=== PATIENT | male | born 1985 | race Caucasian/White ===

== ENCOUNTER 2023-07-07 19:32 | Emergency (ER) | payer OTHER ==
[~2023-07-07] VITALS: Ht 172.7 cm; Wt 120.3 kg
[~2023-07-07 19:32] MED LIST: AEROCHAMBER MA1 EACH MISC; PREDNISONE20 MG PO; SINGULAIR10 MG PO; VENTOLIN HFA18 GM INH
[2023-07-07 20:25] LABS: BASOPHILS 0.6 % (0-2); EOSINOPHILS 2.2 % (0-6); HEMATOCRIT 47.1 % (35.0-50.0); HEMOGLOBIN 15.5 g/dL (12.0-18.0); MCH 28.6 (27-36); MCV 86.6 fl (81-99); MONOCYTES 9.4 % (0-12); NEUTROPHILS 63.8 % (39-80); PLATELET COUNT 273 K/uL (140-440); RBC 5.43 M/ul (4.3-5.7); RDW 13.8 (10.5-15.0)
[2023-07-07] MEDS ORDERED: COLCHICINE0.6 M1 PO (21:06)
[2023-07-07 21:45] VITALS: BP 142/91
== END 2023-07-07 21:45 | disposition home or self-care (01) ==
LOC: ED 19:32
PROVIDERS: Family Medicine
DX: M10.9 Gout, unspecified (principal); J45.909 Unspecified asthma, uncomplicated; F32.A Depression, unspecified; Z88.5 Allergy status to narcotic agent
CPT/HCPCS: 36415; 73630; 84550; 85025; A9270

== ENCOUNTER 2023-10-29 21:50 | Inpatient (IN) | payer OTHER ==
[~2023-10-29] VITALS: Ht 172.7 cm; Wt 125.2 kg
[~2023-10-29 21:50] MED LIST changes: +COLCHICINE0.6 M1 PO
[2023-10-29 22:09] LABS: BASOPHILS 0.3 % (0-2); EOSINOPHILS 1.2 % (0-6); HEMATOCRIT 43.6 % (35.0-50.0); HEMOGLOBIN 14.2 g/dL (12.0-18.0); LYMPHOCYTES 10.3 % (24-44); MCH 28.4 (27-36); MCHC 32.6 g/dl (30-36); MCV 87.1 fl (81-99); MONOCYTES 8.9 % (0-12); NEUTROPHILS 79.3 % (39-80); PLATELET COUNT 267 K/uL (140-440); RDW 15.2 (10.5-15.0)
[2023-10-29] MEDS ORDERED: ondansetron HCL 4 MG/2 ML VIAL IV ONE (22:15)
[2023-10-29 22:28] LABS: ALBUMIN 3.9 g/dL (3.4-5.0); ALBUMIN/GLOBULIN RATIO 0.91 (1.1-2.4); ALKALINE PHOSPHATASE 273 U/L (46-116); ALT (SGPT) 645 U/L (14-59); ANION GAP 13.7 (7-21); AST (SGOT) 297 U/L (15-37); BILIRUBIN, TOTAL 3.8 ng/dL (0.2-1.0); CALCIUM 9.2 mg/dL (8.5-10.1); CARBON DIOXIDE 26 mmol/L (21-32); CHLORIDE 103 mmol/L (98-107); CREATININE, SERUM 0.96 mg/dL (0.70-1.30); GLOMERULAR FILTRATION RATE,EST 104 mL/min (>60); POTASSIUM 3.7 mmol/L (3.5-5.1); PROTEIN, TOTAL 8.2 g/dL (6.4-8.2); UREA NITROGEN 12 mg/dL (7-18)
[2023-10-29] MEDS ORDERED: KETOROLAC TROMETHAMINE 30 MG/ML VIAL IV ONE (22:30)
[2023-10-29] MEDS ORDERED: LACTATED RINGER'S 1,000 ML IV ONE ×2 (22:30→23:30)
[2023-10-29] MEDS ORDERED: HYDROmorphone HCL 1 MG/ML SYR IV PRN (23:15)
[2023-10-29] MEDS ORDERED: LACTATED RINGER'S 1,000 ML IV SCH (23:15)
[2023-10-29] MEDS ORDERED: ondansetron HCL 4 MG/2 ML VIAL IV PRN (23:15)
[2023-10-29] MEDS ORDERED: FAMOTIDINE 20 MG/ 2 ML VIAL IV SCH (23:17)
--- NOTE | 2023-10-29 23:41 | NUR ---
pt ARRIVED TO MS FLOOR FROM ED, pt A/OX4. SELF TRANSFERRED TO MS BED, ADMISSION COMPLETED. IV SITE WNL, BOLUS INFUSING DIRECTED. pt ORIENTED TO ROOM AND POC, QUESTIONS ANSWERED. PRIMARY RN IN ROOM COMPLETING pt CARES. CALL LIGHT IN REACH.
[2023-10-29 23:43] VITALS: BP 128/74
[2023-10-30] VITALS (7 sets, daily range): BP systolic 109–128; BP diastolic 55–71
--- NOTE | 2023-10-30 00:37 | NUR ---
ADMISSION ASSESSMENT COMPLETE. IV BOLUS INFUSING PER ORDER. PT REPORTS ABD PAIN TOLERABLE 3-4/10. DENIES NAUSEA. ABD SOFT. BOWEL TONES ACTIVE. PT NPO. ORAL CARE SUPPLIES PROVIDED. DISCUSSED POC. QUESTIONS ANSWERED. PT ORIENTED TO ROOM AND NURSE CALL LIGHT. NO FURTHER NEEDS AT THIS TIME.
[2023-10-30 01:18] LABS: BILIRUBIN, URINE NEGATIVE (negative); BLOOD/HGB, URINE NEGATIVE (Negative); KETONE, URINE NEGATIVE (Negative); LEUK ESTERASE, URINE NEGATIVE (negative); NITRITE, URINE NEGATIVE (negative); PH, URINE 5.5 (5-7)
[2023-10-30 01:34] LABS: AMPHETAMINES, URINE NEGATIVE (NEGATIVE); BARBITURATES, URINE NEGATIVE (NEGATIVE); BENZODIAZEPINE, URINE NEGATIVE (NEGATIVE); BUPRENORPHINE, URINE NEGATIVE (NEGATIVE); CANNABINOID, URINE NEGATIVE (NEGATIVE); COCAINE, URINE NEGATIVE (NEGATIVE); ECSTASY, URINE NEGATIVE (NEGATIVE); FENTANYL, URINE NEGATIVE (NEGATIVE); METHADONE, URINE NEGATIVE (NEGATIVE); OPIATES, URINE NEGATIVE (NEGATIVE); OXYCODONE, URINE NEGATIVE (NEGATIVE); PHENCYCLIDINE, URINE NEGATIVE (NEGATIVE)
--- NOTE | 2023-10-30 01:59 | NUR ---
IV PUMP ALARMING. NEW BAG IVF INFUSING PER ORDER. PT UP TO BR TO VOID 1000 ML CONCENTRATED URINE. UA SENT TO LAB. NO C/O PAIN OR NAUSEA AT THIS TIME. PT DENIES NEEDS.
--- NOTE | 2023-10-30 05:22 | NUR ---
PT REPORTS EPIGASTRIC PAIN 5/10 AND NAUSEA. PRN FOR PAIN AND N/V ADMIN PER EMAR. VS AND I&O OBTAINED. NO FURTHER NEEDS.
[2023-10-30 05:45] LABS: BASOPHILS 0.2 % (0-2); EOSINOPHILS 2.3 % (0-6); HEMATOCRIT 40.2 % (35.0-50.0); HEMOGLOBIN 12.9 g/dL (12.0-18.0); LYMPHOCYTES 19.7 % (24-44); MCH 28.2 (27-36); MCHC 32.1 g/dl (30-36); MCV 87.9 fl (81-99); MONOCYTES 11.2 % (0-12); NEUTROPHILS 66.6 % (39-80); PLATELET COUNT 225 K/uL (140-440); RBC 4.57 M/ul (4.3-5.7); RDW 14.9 (10.5-15.0)
[2023-10-30 05:59] LABS: ALBUMIN 3.2 g/dL (3.4-5.0); ALBUMIN/GLOBULIN RATIO 0.91 (1.1-2.4); ANION GAP 12.7 (7-21); BILIRUBIN, TOTAL 3.9 ng/dL (0.2-1.0); BUN/CREATININE RATIO 9.63 (6.0-28.6); CALCIUM 8.6 mg/dL (8.5-10.1); CREATININE, SERUM 0.83 mg/dL (0.70-1.30); POTASSIUM 3.7 mmol/L (3.5-5.1); PROTEIN, TOTAL 6.7 g/dL (6.4-8.2)
[2023-10-30] MEDS ORDERED: PROCHLORPERAZINE EDISYLATE 10 MG/2 ML VIAL IV PRN (06:45)
[2023-10-30] MEDS ORDERED: DEXTROSE 5% - LACTATED RINGERS 1,000 ML IV SCH (06:45)
[2023-10-30] MEDS ORDERED: ondansetron HCL 4 MG/2 ML VIAL IV PRN (06:45)
[2023-10-30] MEDS ORDERED: HYDROmorphone HCL 1 MG/ML SYR IV PRN (06:45)
--- NOTE | 2023-10-30 06:48 | NUR ---
PT REPORTS CONTINUED EPIGASTRIC/LEFT SIDE ABD PAIN 5/10 AND NAUSEA. PRN FOR PAIN AND N/V ADMIN PER EMAR.
[2023-10-30] MEDS ORDERED: ACETAMINOPHEN 500 MG TAB PO PRN (07:00)
[2023-10-30] MEDS ORDERED: HYDROmorphone HCL 4 MG TAB PO PRN (07:00)
--- NOTE | 2023-10-30 07:02 | NUR ---
imaging called and asked about pt's npo status, per imaging. pt has to be fully npo for 8hrs before us can be done. this rn discussed with pt, per pt he has not ate/drank anything since last night at approx 2030. primary rn selina aware and imaging to call back for update on when pt last ate/drank.
--- NOTE | 2023-10-30 07:15 | NUR ---
REPORT RECIEVED FROM JOSÉ OLIVEROS. PT SITTING UP IN BED AND RESPONDS WHEN ADDRESSED. PT DENIES ANY NEEDS AT THIS TIME. CALL LIGHT IN REACH.
--- NOTE | 2023-10-30 07:56 | NUR ---
IN TO START NEW FLUIDS PER ORDERS. PT LAYING IN BED ON LEFT SIDE. PT AWAKENS AND RESPONDS WHEN ADDRESSED. IV FLUSHES WNL. NEW BAG OF FLUIDS STARTED, SEE MAR. PT DENIES ANY OTHER NEEDS AT THIS TIME. CALL LIGHT IN REACH.
--- NOTE | 2023-10-30 08:14 | CONS ---
[facility] [address], [place] [address] Signed DATE OF CONSULTATION: 10/30/2023 CHIEF COMPLAINT: Epigastric abdominal pain. HISTORY OF PRESENT ILLNESS: Duncan is a 38-year-old gentleman, who is now remarried, has three children. He is working at a local [employer] company. Apparently, they are staying in a hotel currently because of low on money. For two days now, he has had rather significant mid epigastric abdominal pain with nausea. He even had a little vomiting here at the hospital. He finally came to emergency room for evaluation. He said he drank heavily 15 years ago when he was first . He then was to the point that he was jaundiced. He finally quit drinking two years ago. 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 In the emergency room, he is tender in the mid epigastric area over into the left side of his abdomen. CT scan showed a normal white blood cell count. His liver function test and lipase were elevated. Urine was negative. CT scan confirmed his inflamed pancreas with some peripancreatic inflammation maybe a little fluid over the left gutter. His gallbladder does not appear particularly concerning although it is fairly small. Today, common bile duct is a little dilated 10 mm and up into the intrahepatic ducts as well. I was therefore asked to admit him as a general surgeon on-call for his pancreatitis, probably gallstone related pancreatitis. Overnight, he has done well, but he has required some Dilaudid obviously for his pain control. In just about 6 to 7 hours, his blood work is just starting to trend down a little. PAST MEDICAL HISTORY: Asthma requiring intubation at age 21 when he was working as a [employer] company, although it has not bothered him since then. He has depression. He has had a history of alcohol abuse with jaundice in the past. PAST SURGICAL HISTORY: None. SOCIAL HISTORY: He does not smoke. He quit drinking two years ago. He has no primary care provider. He prefers the [facility]. He is . He is remarried to his , Nita, at [phone]. They have three children. They currently live in a hotel. 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 He works for at [email or web address] at [employer]. FAMILY HISTORY: None. Electronically Signed By: SUHAS GOLDMAN MD 10/30/23 0814 PATIENT NAME: EDMOND LUCIO CONSULTATION DATE OF : 85 REPORT #: [id number] PHYSICIAN: SUHAS GOLDMAN MD PCP: NO PRIMARY CARE PHYSICIAN REPORT IS CONFIDENTIAL AND NOT TO BE RELEASED WITHOUT AUTHORIZATION [facility] [address] [place] [id number] Signed REVIEW OF SYSTEMS: He had 10 systems reviewed and he told me about his use of alcohol in the past. ALLERGIES: Codeine caused vomiting. MEDICATIONS: None. PHYSICAL EXAMINATION: VITAL SIGNS: His blood pressure is 128/71, his heart rate 60, respiratory rate 16, temp is 98.3, he is100% on room air. He is 5 feet 8 inches tall, 125 kg with a body mass index of 42. GENERAL: Edmond is a 38-year-old gentleman, who is lying supine in his hospital bed. He is alert, awake, and interactive. LUNGS: Clear to auscultation bilaterally. HEART: Regular rate and rhythm without murmurs. ABDOMEN: Obese, but soft. He is tender right across the pancreas transversely more so to the left than to the right. LABORATORY DATA: His white blood count was 10.4, it is now 6.8, hemoglobin 12.9, neutrophils 66. Electrolytes unremarkable. Creatinine 0.83, total bilirubin is 3.9, it was 3.8, AST is 238 was 297, ALT is 531, it was 645, alkaline phosphatase is 247, it was 273 and lipase is greater than 375. Albumin is 3.2 was 3.9. His urinalysis was negative. RADIOGRAPHIC STUDIES: CT scan and pelvis reviewed the images and the report. We can see the inflammation through the pancreas and a little fluid in the left gutter. The gallbladder seems to be small and contracted. No obvious gallstones. Common bile duct is dilated all the way down the ampulla about 10 mm. The liver is unremarkable. ASSESSMENT AND PLAN: Edmond is a 38-year-old gentleman, who has pancreatitis most likely related to the gallstones. He more than likely passed a gallstone. He has been admitted given IV fluids and pain control. We are going to allow him some clear liquids today. We are going to order an ultrasound of the gallbladder for evaluation. We will allow him to ambulate and brush his teeth and shower and so forth. We will see how he does clinically and with his laboratory work. I have also given him a brochure on the gallbladder and the pancreas and explained to him his pathophysiology. He knows at some point we need to get his gallbladder out. It will unlikely be today. He has expressed understanding and agrees with the above plan. Electronically Signed By: SUHAS GOLDMAN MD 10/30/23 0814 PATIENT NAME: EDMOND LUCIO CONSULTATION DATE OF : 85 REPORT #: [id number] PHYSICIAN: SUHAS GOLDMAN MD PCP: NO PRIMARY CARE PHYSICIAN REPORT IS CONFIDENTIAL AND NOT TO BE RELEASED WITHOUT AUTHORIZATION [address] [place], [place] [address] Signed MD CHARMAINE Vincent/DAWSON /[id number] Copies: ~ Electronically Signed By: SUHAS GOLDMAN MD 10/30/23 0814 PATIENT NAME: EDMOND LUCIO CONSULTATION DATE OF : 85 REPORT #: [id number] PHYSICIAN: SUHAS GOLDMAN MD PCP: NO PRIMARY CARE PHYSICIAN REPORT IS CONFIDENTIAL AND NOT TO BE RELEASED WITHOUT AUTHORIZATION
--- NOTE | 2023-10-30 08:23 | NUR ---
UR CLINICAL REVIEW: [facility] 10/29/23 @ 1927 YES MATCHES REG CLINICALS SENT FOR AUTH REVIEW DISCHARGE TO HOME WHEN STABLE 10/31/23
[2023-10-30] MEDS ORDERED: ENOXAPARIN SODIUM 40 MG/0.4 ML SYR SUB-Q SCH (09:00)
[2023-10-30] MEDS ORDERED: PANTOPRAZOLE SODIUM 40 MG/10 ML VIAL IV SCH (09:00)
--- NOTE | 2023-10-30 09:12 | NUR ---
MED REC COMPLETE
--- NOTE | 2023-10-30 09:44 | NUR ---
IN TO ADMINISTER MEDICATIONS, SEE MAR. PT REPORTING PAIN IN LLQ 09/10. PRN TYLENOL ADMINISTERED, SEE MAR. PT REPORTING NAUSEA, ATTEMPTED TO HAVE PT SMELL ALCOHOL SWAB, PT STATES "NO." PRN COMPAZINE ADMINISTERED, SEE MAR. IV FLUIDS INFUSING WNL. ASSESSMENT COMPLETE. LUNG SOUNDS CLEAR IN RUL AND BRITTANY. DIMINISHED IN RLL AND LLL. BOWEL TONES ACTIVE. ABD DISTENTION NOTED. ABD TENDER WITH PALPATION ALL OVER. PT DENIES NUMBNESS OR TINGLING AT THIS TIME. PT DENEIS ANY OTHER NEEDS AT THIS TIME. CALL LIGHT IN REACH.
--- NOTE | 2023-10-30 11:47 | NUR ---
IN TO ROUND ON PT. PT LAYING IN BED SEMI-FOWLERS. EYES CLOSED, RR EVEN AND UNLABORED. NO NEEDS IDENTIFIED AT THIS TIME. IV INFUSING WNL. CALL LIGHT IN REACH.
--- NOTE | 2023-10-30 13:26 | NUR ---
IN TO ROUND ON PT. PT SITTING UP IN BED TALKING TO JOSÉ CRISOSTOMO. NO NEEDS IDENTIFIED AT THIS TIME. CALL LIGHT IN REACH.
--- NOTE | 2023-10-30 13:30 | NUR ---
Spoke with Lauro. Discussed consult sent by Dr. Hawley for pt as he felt he was in need of housing. Pt stating he and family are homeless at this time. I questioned him further as Dr had stated he was stay at a hotel. He then states they have been staying at [employer] hotel, he is working with [employer], they have food stamps, and he is currently working for [employer]. He does not currently drive and is able to walk to work or take a bus most of the way. He has 3 children and his is not working. He does not have a pcp and states he does use a Dr. He has come to the ER for his last two medical issues. Let him know I can get him in with [facility]. Their new care provider is arriving December 15. If there is a medical issue he can call and they will do a telehealth appt with Jessica LEVIN. They have good stamps and he denies food insecurity. We discussed low income housing and he admits they left and did not pay rent or utilities in the past. He has applied for low income housing and not having any luck. Discussed he will more than likely have to pay a large deposit as non payment is tracked. He is currently trying to get into the [facility]term so they can save money. Pt also has a class A felony. He states he has been sober for 2 years. I encouraged him to cont. to work with [employer] as this is where I would send him for assist with housing. He is aware he has free transport through his [facility] with [employer] transport.
--- NOTE | 2023-10-30 14:25 | NUR ---
ASKED PATIENT IS THERE ANYTHING THAT YOU NEED AND HE SAID NOT AT THIS TIME. PATIENT IS INDEPENDENT IN HIS ROOM.
--- NOTE | 2023-10-30 14:30 | NUR ---
PATIENT AND I WALKED THREE LAPS AROUND MED SURG. THAN HE WENT IN AND TOOK A SHOWER.
--- NOTE | 2023-10-30 14:48 | NUR ---
IN TO ROUND ON PT. PT RESTING IN BED ON LEFT SIDE. PT AWAKENS AND RESPONDS WHEN ADDRESSED. ASSESSMENT COMPLETE. PT REPORTING PAIN 4/10 ON LEFT SIDE OF ABD, PRN MEDICATION ADMINISTERED, SEE MAR. PT DENIES NAUSEA AT THIS TIME. ABD TENDER WITH PALPATION "ALL OVER." LUNG SOUNDS CLEAR IN RUL AND BRITTANY. DIMINISHED IN RLL AND LLL. ASKED PT IF PT WAS UP FOR AMBULATING AND SHOWERING. PT AGREEABLE. PT SL AT THIS TIME TO AMBULATE AND SHOWER. LOLA FRIEND IN TO ASSIST PT. PT DENIES ANY OTHER NEEDS FROM THIS RN AT THIS TIME. CALL LIGHT IN REACH.
--- NOTE | 2023-10-30 15:26 | NUR ---
Received a return call from Bing ECHAVARRIA. She suggested pt call [facility] as they are actively trying to fill their units. [phone].
--- NOTE | 2023-10-30 15:58 | NUR ---
IN TO ROUND ON PT. IV FLUIDS RESUMED, IV FLUSHES WNL. PT SITTING UP IN BED AND RESPONDS WHEN ADDRESSED. PT REPORTING PAIN 4/10 IN LEFT SIDE OF ABD. OFFERED HOT PACK, PT ACCEPTS. HOT PACK PROVIDED. PT DENIES NAUSEA AT THIS TIME. PT DENIES ANY OTHER NEEDS AT THIS TIME. CALL LIGHT IN REACH.
--- NOTE | 2023-10-30 17:35 | NUR ---
IN TO ROUND ON PT. PT SITTING UP IN BED AND RESPONDS WHEN ADDRESSED. LOLA FRIEND IN ROOM. PT REPORTING PAIN "IS BETTER WITH THE HOT PACK." PT REPORTING PAIN /10 AND REQUESTING NEW HOT PACK, HOT PACK PROVIDED. PT DENIES PRN PAIN MEDICAITON WHEN OFFERED. PT DENIES ANY OTHER NEEDS FROM THIS RN. CALL LIGHT IN REACH.
--- NOTE | 2023-10-30 19:40 | NUR ---
REPORT RECIEVED FROM DAY SHIFT RN. PATIENT DENIES NEEDS AT THIS TIME. PATIENT RESTING IN BED. NO FURTHER NEEDS. CALL LIGHT IN REACH.
--- NOTE | 2023-10-30 20:18 | NUR ---
PATIENT RESTING IN BED. VS AND I&Os OBTAINED AND RECORDED. IV FLUSHES WNL. PATIENT REPORTS 4/10 L ABD PAIN, PRN PAIN MEDICATION ADMINISTERED. PATIENT STATES "TYLENOL HAS BEEN WORKING MORE THAN THAT OTHER STUFF". PATIENT ASSESSMENT COMPLETE. CLEAR LUNG SOUNDS THROUGHOUT, DIMINISHED IN BILAT BASES. PATIENT UP TO AMBULATE HALLS AT THIS TIME. FRESH WATER PROVIDED.
--- NOTE | 2023-10-30 21:18 | NUR ---
pt AMBULATED 10X LAPS IN HALLWAY INDEPENDENTLY, TOLERATED WELL AND STEADY ON FEET. pt BACK IN BED, IV FLUIDS RESUMED DIRECTED. IV SITE WNL, BRISK BLOOD RETURN NOTED. pt LEFT RESTING IN BED, TALKING ON PHONE. CALL LIGHT AND PERSONAL BELONGINGS IN REACH, PRIMARY RN SOHA UPDATED AND AWARE.
--- NOTE | 2023-10-30 22:12 | NUR ---
PATIENT RESTING IN BED TALKING ON THE PHONE. PATIENT DENIES AT THIS TIME. CALL LIGHT IN REACH.
[2023-10-31] VITALS (8 sets, daily range): BP systolic 105–134; BP diastolic 58–80
--- NOTE | 2023-10-31 00:09 | NUR ---
PATIENT RESTING IN BED WITH EYES CLOSED. RESPIRATIONS EVEN AND UNLABORED. CALL LIGHT IN REACH.
--- NOTE | 2023-10-31 01:29 | NUR ---
CALL LIGHT ANSWERED. NEW BAG OF IVF HUNG. IV SITE PATENT. PATIENT UP TO BATHROOM. AMBULATING WELL WITH 1 PA STAND BY ASSIST. VOIDING QUANITY SUFFICIENT. BACK IN BED. CALL LIGHT WITHIN REACH.
--- NOTE | 2023-10-31 01:45 | NUR ---
HOT PACK PROVIDED. SCDs IN PLACE. PATIENT DENIES FURTHER NEEDS. CALL LIGHT IN REACH.
--- NOTE | 2023-10-31 03:02 | NUR ---
PATIENT RESTING IN BED WATCHING TV. PATIENT DENIES NEEDS AT THIS TIME. CALL LIGHT IN REACH.
[2023-10-31 05:37] LABS: BASOPHILS 0.3 % (0-2); EOSINOPHILS 2.4 % (0-6); HEMATOCRIT 40.3 % (35.0-50.0); HEMOGLOBIN 13.1 g/dL (12.0-18.0); LYMPHOCYTES 15.4 % (24-44); MCH 28.7 (27-36); MCHC 32.5 g/dl (30-36); MCV 88.1 fl (81-99); MONOCYTES 8.5 % (0-12); NEUTROPHILS 73.4 % (39-80); PLATELET COUNT 187 K/uL (140-440); RBC 4.57 M/ul (4.3-5.7); RDW 14.9 (10.5-15.0)
--- NOTE | 2023-10-31 05:41 | NUR ---
PATIENT RESTING IN BED. VS AND I&Os OBTAINED AND RECORDED. PATIENT REPORTS 3/10 L ABD PAIN. THIS RN ENCOURAGED PATIENT TO AMBULATE THE HALLS, PATIENT AGREED TO WALK IN A LITTLE BIT. PATIENT DENIES NEED FOR PRN PAIN MEDICATION AT THIS TIME. FRESH HOT PACK PROVIDED. NO FURTHER NEEDS. CALL LIGHT IN REACH.
[2023-10-31 05:52] LABS: ALBUMIN 3.1 g/dL (3.4-5.0); ALBUMIN/GLOBULIN RATIO 0.82 (1.1-2.4); ALKALINE PHOSPHATASE 283 U/L (46-116); ALT (SGPT) 451 U/L (14-59); ANION GAP 10.5 (7-21); AST (SGOT) 171 U/L (15-37); BILIRUBIN, TOTAL 3.5 ng/dL (0.2-1.0); BUN/CREATININE RATIO 6.41 (6.0-28.6); CALCIUM 8.3 mg/dL (8.5-10.1); CARBON DIOXIDE 29 mmol/L (21-32); CHLORIDE 104 mmol/L (98-107); CREATININE, SERUM 0.78 mg/dL (0.70-1.30); GLOMERULAR FILTRATION RATE,EST 117 mL/min (>60); MAGNESIUM 1.7 mg/dL (1.8-2.4); POTASSIUM 3.5 mmol/L (3.5-5.1); PROTEIN, TOTAL 6.9 g/dL (6.4-8.2); UREA NITROGEN 5 mg/dL (7-18)
[2023-10-31] MEDS ORDERED: MAGNESIUM SULFATE 3 GM in SODIUM CHLORIDE 0.9% 100 ML IV ONE (06:30)
--- NOTE | 2023-10-31 07:10 | NUR ---
REPORT RECIEVED FROM JOSÉ HOYOS. PT RESTING IN BED SEMI-FOWLERS. EYES CLOSED, RR EVEN AND UNLABORED. IV INFUSING WNL. NO NEEDS IDENTIFIED AT THIS TIME. CALL LIGHT IN REACH.
--- NOTE | 2023-10-31 07:51 | NUR ---
IN WITH SN LOREN AND SN GABRIELA. PT SITTING UP IN BED AND RESPONDS WHEN ADDRESSED. IV FLUSHES WNL AND INFUSING WNL. IV MAGNESIUM STARTED, SEE MAR. LOLA MEDINA BRINGS PT HOT PACK. URINAL EMPTIED. PT DENIES ANY OTHER NEEDS AT THIS TIME. CALL LIGHT IN REACH.
--- NOTE | 2023-10-31 07:58 | NUR ---
WENT IN TO CHECK UP ON PT HE NEEDED TO USE THE RESTROOM. UPDATED BOARD AND GOT PT A HEAT PACK PT DIDNT NEED ANYTHING ELSE AND CALL LIGHT IS WITHIN REACH.
[2023-10-31] MEDS ORDERED: iopamidoL 30 ML VIAL ONE (08:51)
[2023-10-31] MEDS ORDERED: SODIUM CHLORIDE 0.9% 40 ML IV ONE (08:52)
[2023-10-31] MEDS ORDERED: LIDOCAINE 1% W/ EPI 1:100,000 20 ML MDV ONE (08:53)
[2023-10-31] MEDS ORDERED: CEFTRIAXONE/SODIUM CHLORIDE 2 GM/100 ML PIGGYBACK IV SCH (09:00)
--- NOTE | 2023-10-31 09:55 | NUR ---
THIS RN CALLED DR. GOLDMAN REGARDING PTs PLATELETS AND TO SEE IF DR. GOLDMAN WOULD STILL LIKE PT TO RECIEVE LOVENOX. PER DR. GOLDMAN "GIVE THE LOVENOX."
--- NOTE | 2023-10-31 10:02 | NUR ---
IN WITH SN LOREN TO ADMINISTER MEDICATIONS, SEE MAR. PT RESTING IN BED WITH EYES CLOSED, RR EVEN AND UNLABORED. PT AWAKENS AND RESPONDS WHEN ADDRESSED. PT REPROTING PAIN 4/10 TO LEFT SIDE OF ABD. HOT PACK IN PLACE. ASSESSMENT COMPLETE. LUNG SOUNDS CLEAR IN RUL, BRITTANY AND RLL. DIMINISHED IN LLL. BOWEL TONES ACTIVE. ABD TENDER WITH PALPATION, SOFT OTHERWISE. PEDAL PULSES PALPABLE AND EQUAL, STRONG. IV FLUSHES WNL. IV INFUSING WNL. IV ABX STARTED, SEE MAR. RT IN ROOM TO TALK WITH PT. PT DENIES ANY OTHER NEEDS AT THIS TIME. CALL LIGHT IN REACH.
[2023-10-31] MEDS ORDERED: KETOROLAC TROMETHAMINE 30 MG/ML VIAL ONE (10:03)
[2023-10-31] MEDS ORDERED: ROCURONIUM BROMIDE 50 MG/5 ML SYR ONE (10:03)
[2023-10-31] MEDS ORDERED: propofoL 200 MG/20 ML VIAL ONE (10:03)
[2023-10-31] MEDS ORDERED: DEXAMETHASONE SOD PHOS 4 MG/ML VIAL ONE (10:03)
[2023-10-31] MEDS ORDERED: LIDOCAINE HCL 1% 30 ML SDV ONE (10:03)
[2023-10-31] MEDS ORDERED: ondansetron HCL 4 MG/2 ML VIAL ONE (10:03)
--- NOTE | 2023-10-31 10:48 | NUR ---
IN TO ROUND ON PT. IV PUMP ALARMING, RESOLVED. PT DENIES ANY OTHER NEEDS AT THIS TIME. CALL LIGHT IN REACH.
--- NOTE | 2023-10-31 10:58 | NUR ---
GAVE PT THE WIPES TO DO THE WIPE DOWN PT WAS ABLE TO DO IN INDP. CHANGED LINENS, GAVE HIM NEW GOWND AND PT WAS AWARE OF THE STEPS TO WIPE DOWN AND TO PULL THE CALL LIGHT IF HE NEEDED ANYTHING ELSE.
--- NOTE | 2023-10-31 11:03 | NUR ---
SURGICAL NURSE HERE TO TAKE PT DOWN FOR PROCEDURE.
[2023-10-31] MEDS ORDERED: KETAMINE in NS 50 MG/5 ML SYR ONE (11:17)
[2023-10-31] MEDS ORDERED: dexmedeTOMIDine HCl 200 MCG/2 ML VIAL ONE (11:33)
--- NOTE | 2023-10-31 11:50 | NUR ---
UR CONCURRENT REVIEW: [facility] IN[facility]IENT 10/29/23 @ 2324 MEETS CRITERIA FOR INPT NEXT REVIEW 11/03/23
--- NOTE | 2023-10-31 12:13 | NUR ---
PT OUT OF ROOM FOR PROCEDURE.
[2023-10-31] MEDS ORDERED: droPERidol 5 MG/2 ML VIAL IV PRN (12:15)
[2023-10-31] MEDS ORDERED: fentaNYL citrate 50 MCG/ML SDV IV PRN (12:15)
[2023-10-31] MEDS ORDERED: ondansetron HCL 4 MG/2 ML VIAL IV PRN (12:15)
[2023-10-31] MEDS ORDERED: IBLOOD GLUCOSE TEST STRIP 1 EA TEST VI PRN (12:15)
[2023-10-31] MEDS ORDERED: HYDROmorphone HCL 1 MG/ML SYR IV PRN (12:15)
[2023-10-31] MEDS ORDERED: NALOXONE HCL 0.4 MG SYR IV PRN (12:15)
--- NOTE | 2023-10-31 14:15 | NUR ---
10/31/23 1415 Sheets,Denae 1353 PT ARRIVED TO PACU ON 6L VIA MASK, PT ASLEEP AND SMALL AMOUNT OF SNORING NOTED. 1400 PT WAKES TO TACTILE STIMULI AND DENIES NAUSE AND PAIN. O2 REMOVED AND PT REORIENTED TO PACU. 1405 O2 DECREASED TO 88%, 2L NC PLACED AND DEEP BREATHING ENCOURAGED. O2 INCREASED TO LOW 90S. RN HELPS PT BRACE ABD FOR COUGHING, PT ABLE TO COUGH SOME. PT REPORTS PAIN INCREASED WITH COUGHING. 1411 HOB INCREASED AND PILLOW PLACED ON ABD. PT REPORTS 5/10 WHEN NOT COUGHING. PT REPORTS BEING HUNGERY. DIET EDUCATION GIVEN.
--- NOTE | 2023-10-31 15:17 | NUR ---
PT ARRIVED BACK TO UNIT FROM PACU AT 1500, REPORT RECEIVED FROM STACY. PT A/OX4, AWAKE, SATS 94% ON 2L PER NC AT THIS TIME. VS STABLE. 3 LAP SITES TO MIDLINE, CDI. JUAN DRAIN IN PLACE TO RIGHT SIDE WITH MINIMAL DRAINAGE AT THIS TIME, DRESSSING CDI. PER STACY, THERE ARE 2 LAP SITES UNDER JUAN DRAIN DRESSING THAT ARE NOT VISIBLE BUT DRESSING SURROUNDING DRAIN IS CDI. PT C/O PAIN 3/10 WHICH IS TOLERABLE AT THIS TIME. SCDS IN PLACE. CPOX IN PLACE. PT REQUESTING FOOD WHEN ARRIVED TO FLOOR. CALL LIGHT WITHIN REACH, ALL PT CARE NEEDS COMPLETED AT THIS TIME. REPORT GIVEN TO PRIMARY RN-LUCHO WHEN SHE ARRIVED BACK TO UNIT.
--- NOTE | 2023-10-31 15:20 | NUR ---
IN PT BACK FROM PROCEDURE. REPORT RECIEVED FROM JOSÉ CRAIG AT 1515. PT SITTING UP IN BED AND RESPONDS WHEN ADDRESSED. CPOX IN PLACE WITH O2 SATS BETWEEN 94-95% ON 2L NC. SCD's IN PLACE. ASSESSMENT COMPLETE. LUNG SOUNDS CLEAR IN RUL, BRITTANY AND RLL. DIMINISHED IN LLL. BOWEL TONES ACTIVE. ABD SOFT, TENDER WITH PALPATION. 3 MIDLINE LAP SITES TO ABD COVERED, DRESSINGS C/D/I. JUAN DRAIN TO RIGHT SIDE OF ABD WITH SEROUSANGUENOUS DRAINAGE NOTED, DRESSING TO SITE C/D/I. PT REPORTING PAIN 5/10 TO MIDDLE MIDLINE LAP SITE. PRN MEDICATION ADMINISTERED, SEE MAR. ICE PACK PROVIDED. ICE WATER PROVIDED. PT DENIES NAUSEA AT THIS TIME. IV FLUSHES WNL AND INFUSING WNL. PT DENIES ANY OTHER NEEDS AT THIS TIME. CALL LIGHT IN REACH.
--- NOTE | 2023-10-31 17:00 | NUR ---
Spoke with pt. No needs. "Sore after surgery".
--- NOTE | 2023-10-31 17:16 | NUR ---
IN TO OBTAIN VITALS. PT RESTING IN BED WITH EYES CLOSED, RR EVEN AND UNLABORED. PT AWAKENS WHEN ADDRESSED. VITALS COMPLETE. PT REPORTING PAIN 5/10 TO ABD. PT REQUESTING PRN TYLENOL. PRN TYLENOL ADMINISTERED, SEE MAR. PT TAKES PO MEDICAITON WITH NO ISSUES. LOIS DRAIN EMPTIED. PT DENIES NAY OTHER NEEDS AT THIS TIME. CALL LIGHT IN REACH.
--- NOTE | 2023-10-31 18:50 | NUR ---
IN PT HAS YET TO VOID SINCE RETURNING FROM SURGERY AT 1500. PT RESTING IN BED, SEMI-FOWLERS. PT STATES HE DOES NOT FEEL HE NEEDS TO VOID AT ALL. BLADDER SCAN X5, HIGHEST VOLUME 1066ML. PT INFORMED OF STRAIGHT CATHING PROCEDURE IF UNABLE TO VOID. PT STATES "OH NO, I'VE HAD THAT DONE BEFORE AND NEVER AGAIN." PT AGREEABLE TO TRYING TO STAND TO ENCOURAGE BLADDER TO EMPTY. PT STANDS AT BEDSIDE, STATES "I CAN FEEL IT STARTING TO MOVE DOWN". PT VOIDS SUCCESSFULLY, SEE I&O. CALL LIGHT IN REACH, NO NEEDS NOTED.
--- NOTE | 2023-10-31 19:47 | NUR ---
REPORT RECIEVED FROM DAY SHIFT RN. PATIENT AMBULATING THE HALLS WITH COOLER DELIVERER.
--- NOTE | 2023-10-31 19:57 | NUR ---
CONTROLS TECHNICIAN RELEIVED ENGINEERING FACULTY MEMBER FROM WALKING LAPS WITH PT. CONTROLS TECHNICIAN WALKED WITH PT FOR 3 LAPS AROUND UNIT. PT BACK IN ROOM AND SITTIN GIN CHAIR. CPOX RECONNECTED AND NASAL CANNULA BACK ON PT. PT BROUGHT CHICKEN BROTH REQUESTED. NO FURHTER NEEDS AT THIS TIME. CALL LIGHT WITHIN REACH.
--- NOTE | 2023-10-31 21:18 | NUR ---
PT. VITALS AND INTAKE WNL. EDUCATED ON IS AND PROVIDED. EDUCATED ABOUT DRINKING FLUIDS TO ENCOURAGE MORE OUTPUT. ROOM TIDIED. CALL LIGHT IN REACH. DENIES NEEDS.
--- NOTE | 2023-10-31 21:30 | NUR ---
PATIENT RESTING IN BED. PATIENT REPORTS 5/10 PAIN, AND INCREASES WITH MOVEMENT. PATIENT STATES "DILAUDID DOES NOT HELP MY PAIN. WHY DO I ONLY HAVE TYLENOL AND DILAUDID?". PATIENT ABD DRESSING C/D/I. BOWEL TONES ACTIVE. PATIENT VOIDED 150 mL OF DARK YELLOW URINE. BLADDER SCAN FOR 511 mL. LOIS DRAIN DRAINING SEROSANGUINEOUS FLUID. IV FLUSHES WNL. PATIENT DENIES FURTHER NEEDS AT THIS TIME. CALL LIGHT IN REACH.
--- NOTE | 2023-10-31 22:15 | NUR ---
THIS RN PLACED CALL TO MD REGUARDING BLADDER SCAN RESULTS, IV FLUID, AND PAIN MEDICATION. NEW ORDERS RECIEVED. VERIFIED USING REPEAT BACK METHOD.
--- NOTE | 2023-10-31 22:15 | NUR ---
MD GAVE TELEPHONE ORDER FOR "STRAIGHT CATH PRN IF PATIENT UNCOMFORTABLE". NO MINIMUM VOLUME GIVEN FOR ORDER.
[2023-10-31] MEDS ORDERED: OXYCODONE HCL 5 MG TAB PO PRN (22:30)
--- NOTE | 2023-10-31 23:47 | NUR ---
PATIENT RESTING IN BED WATCHING TV. PATIENT REPORTS 5/10 ABD BUT DENIES THE NEED FOR PAIN MEDICATION. THIS RN EDUCATED NOT TO LET THE PAIN GET TOO MUCH WORSE, AND TO CALL IF HE CHANGES HIS MIND. PATIENT VERBALIZED UNDERSTANDING. NO FURTHER NEEDS. CALL LIGHT IN REACH.
[2023-11-01 01:30] VITALS: BP 118/77
--- NOTE | 2023-11-01 01:37 | NUR ---
PATIENT RESTING IN BED WATCHING TV. VS AND I&Os OBTAINED AND RECORDED. PATIENT REPORTS 5/10 MID ABD PAIN, PRN PAIN MEDICATION ADMINSITERED. LOIS DRAINING SEROSANGUINEOUS FLUID. ABD DRESSINGS C/D/I. PATIENT VOIDED 950 mL DARK YELLOW URINE INTO URINAL. PATIENT DENIES FURTHER NEEDS AT THIS TIME. SCDs IN PLACE. CALL LIGHT IN REACH.
--- NOTE | 2023-11-01 03:53 | NUR ---
PATIENT RESTING IN BED WITH EYES CLOSED. RESPIRATIONS EVEN AND UNLABORED. O2 SAT 90% ON RA. CALL LIGHT IN REACH.
--- NOTE | 2023-11-01 04:39 | NUR ---
IV PUMP ALARMING. NEW BAG IV FLUID INFUSING PER ORDER. NO FURTHER NEEDS. CALL LIGHT IN REACH.
[2023-11-01 05:16] VITALS: BP 133/78
--- NOTE | 2023-11-01 05:21 | NUR ---
CONSULTING MANAGER ENTERED ROOM AND OBTAINED VITALS AND I&O. LOIS DRAIN EMPTIED AND FRESH ICE WATER GIVEN TO PT. PT STATES NO FURTHER NEEDS AT THIS TIME. CALL LIGHT WITHIN REACH.
[2023-11-01 05:24] LABS: BASOPHILS 0.2 % (0-2); EOSINOPHILS 0.1 % (0-6); HEMATOCRIT 38.8 % (35.0-50.0); HEMOGLOBIN 12.3 g/dL (12.0-18.0); LYMPHOCYTES 8.3 % (24-44); MCHC 31.7 g/dl (30-36); MCV 88.2 fl (81-99); MONOCYTES 7.2 % (0-12); NEUTROPHILS 84.2 % (39-80); PLATELET COUNT 209 K/uL (140-440)
--- NOTE | 2023-11-01 05:30 | NUR ---
PATIENT REPORTS 5/10 MIDLINE ABD PAIN. PRN PAIN MEDICATION ADMINISTERED. PATIENT EDUCATED TO CALL IF PAIN MEDICATION MAKES HIM FEEL UNCOMFORTABLE OR NAUSEOUS, GIVEN HIS PREVIOUS ALLERGY HX. PATIENT VERBALIZES UNDERSTANDING. PATIENT DENIES FURTHER NEEDS. SCDs IN PLACE. CALL LIGHT IN REACH.
[2023-11-01 05:40] LABS: ALBUMIN 2.8 g/dL (3.4-5.0); ALBUMIN/GLOBULIN RATIO 0.65 (1.1-2.4); ALKALINE PHOSPHATASE 277 U/L (46-116); ALT (SGPT) 356 U/L (14-59); ANION GAP 12.9 (7-21); AST (SGOT) 91 U/L (15-37); BILIRUBIN, TOTAL 1.3 ng/dL (0.2-1.0); CALCIUM 8.6 mg/dL (8.5-10.1); CARBON DIOXIDE 30 mmol/L (21-32); CHLORIDE 104 mmol/L (98-107); CREATININE, SERUM 0.85 mg/dL (0.70-1.30); GLOMERULAR FILTRATION RATE,EST 114 mL/min (>60); MAGNESIUM 2.2 mg/dL (1.8-2.4); POTASSIUM 3.9 mmol/L (3.5-5.1); PROTEIN, TOTAL 7.1 g/dL (6.4-8.2); UREA NITROGEN 4 mg/dL (7-18)
--- NOTE | 2023-11-01 07:11 | OR ---
[facility] [address], [place] [address] Signed DATE OF OPERATION: 10/31/2023 SURGEON: Suhas Goldman MD PREOPERATIVE DIAGNOSIS: Biliary, gallstone pancreatitis. POSTOPERATIVE DIAGNOSIS: Biliary, gallstone pancreatitis. PROCEDURES: 1. Laparoscopic cholecystectomy with intraoperative cholangiogram (prolonged and difficult at 2 hours with a second scrub nurse and additional consultation with the surgeon). 2. Placement of subhepatic drain. ESTIMATED BLOOD LOSS: None. FINDINGS: Edmond indeed had a very chronically contracted and inflamed gallbladder as we could see on the CT scan and the ultrasound. It took more than double the amount of time to dissect that free. We had to use a top-down approach. I had open the midportion of the gallbladder and then brought that down towards the infundibulum of the cystic duct until we had all the stones completely evacuated and we could easily probe and see the cystic duct. We then used a PDS Endoloop right at the cystic duct after we completed our cholangiogram, which was unremarkable. I did consult Dr. Mendieta briefly during the procedure for his advice and input. We did use a second nurse and additional fan retractor to help complete the case. In this way, the case was prolonged and difficult. INDICATIONS: Edmond is a 38-year-old gentleman with a body mass index of 42. He had at least two days of mid epigastric abdominal pain. He finally came to the emergency room for evaluation. His white count was normal, but his liver function tests were elevated and the lipase was as well. A CT scan of abdomen and pelvis showed the liver was unremarkable, but he had inflammation of the pancreas along with some fluid in the left gutter. The gallbladder was contracted with no obvious gallstones on the CT scan. The common bile duct was about 10 mm and dilated up into the liver just a bit. He was hydrated overnight and repeat labs were starting to improve next morning. We had him undergo ultrasound, which confirmed that there were indeed stones in his gallbladder. Electronically Signed By: SUHAS GOLDMAN MD 11/01/23 0711 PATIENT NAME: EDMOND LUCIO OPERATIVE REPORT DATE OF : 85 REPORT #: [id number] PHYSICIAN: SUHAS GOLDMAN MD PCP: ELDER KELLY PA-C REPORT IS CONFIDENTIAL AND NOT TO BE RELEASED WITHOUT AUTHORIZATION [facility] [address], [place] [address] Signed The gallbladder wall seemed a little thickened. The common bile duct was around 10-12 mm. By the next morning, he was feeling better and his labs were continuing to improve. I had brought Edmond brochure on the gallbladder. We discussed the location and function of the gallbladder. We discussed laparoscopic versus open cholecystectomy. We had reviewed the concept of gallstones as well as ERCP. He understands there is risk to the surgery including, but not limited to bleeding, infection, scarring, change in contour of the skin, damage to bowel, damage to main bile duct, incisional hernias, and other unforeseen comorbidities. He had expressed understanding and wished to proceed. DESCRIPTION OF PROCEDURE: Edmond was taken into the operating room and placed in the supine position under general endotracheal tube anesthesia. He was given Rocephin and Flagyl. He was on preoperative Lovenox. SCDs were utilized. He was prepped and draped in the usual sterile fashion. We placed our initial trocars in our usual positions under direct visualization of camera without difficulty. Sure enough, his gallbladder was contracted deep underneath the liver. We therefore added a fan retractor through the midline and we brought in a second nurse to help hold the retractor. It was very difficult to do our lateral traction as usual because the gallbladder was so contracted and so deep, it took extra time to dissect away the surrounding transverse mesocolon. I dissected the top of the gallbladder free initially just for place to grasp the gallbladder. We found that the inflammation continued way down towards the portal triad rather than our traditional approach, then I decided maybe a top-down approach would be better. I did consult with Dr. Mendieta, who came in to review some anatomy and go over the case with me. I had made a small hole in about the body of the gallbladder, that allowed us access into the gallbladder, we evacuated multiple stones. Eventually, I probed the area and could see the infundibulum. The fundus of the gallbladder was opened literally downward towards the cystic duct until I could absolutely see the cystic duct directly without difficulty. All the stones had been evacuated. The intraoperative cholangiocatheter was then inserted into the cystic duct and held in place. The intraoperative cholangiogram showed the cystic duct and common bile duct were clear. I was then able to divide the gallbladder and leave a short 1 cm cuff. The PDS Endoloop was brought over that and cinched down right where the gallbladder joins the cystic duct. I put two clips on the cuff of gallbladder to nuvia its location. After this, a #7 flat Nicolas drain was brought into the subhepatic space and held at the most lateral 5 mm trocar site on the right side with an interrupted 2-0 nylon suture. The area had been irrigated and suctioned out until clear. We then closed the subxiphoid and mid epigastric trocar sites with our laparoscopic suturing device and 0-Vicryl suture. After this, all the gas was allowed to escape and all the remaining trocars were removed. We closed the fascia of the supraumbilical trocar site with interrupted simple and [id number] 0-Vicryl sutures. Local anesthetic was injected into all trocar sites. Each trocar site was irrigated and suctioned out until clear. We closed the skin and dermis of each trocar site with interrupted 3-0 subcuticular Monocryl sutures. Electronically Signed By: SUHAS GOLDMAN MD 11/01/23 0711 PATIENT NAME: EDMOND LUCIO OPERATIVE REPORT DATE OF : 85 REPORT #: [id number] PHYSICIAN: SUHAS GOLDMAN MD PCP: ELDER KELLY PA-C REPORT IS CONFIDENTIAL AND NOT TO BE RELEASED WITHOUT AUTHORIZATION [facility] [address], [place] [address] Signed Dry gauze and tape was then applied. We attached our bulb to the #7 flat Nicolas drain. After this, Edmond was awakened from his anesthesia, extubated in the OR, and taken to the recovery room in stable condition. Suhas Goldman MD ALB/MODL /[id number] cc: Suhas Goldman MD Patient Chart Copies: SUHAS GOLDMAN MD ~ Electronically Signed By: SUHAS GOLDMAN MD 11/01/23 0711 PATIENT NAME: EDMOND LUCIO OPERATIVE REPORT DATE OF : 85 REPORT #: [id number] PHYSICIAN: SUHAS GOLDMAN MD PCP: ELDER KELLY PA-C REPORT IS CONFIDENTIAL AND NOT TO BE RELEASED WITHOUT AUTHORIZATION
--- NOTE | 2023-11-01 07:16 | NUR ---
REPORT RECIEVED FROM JOSÉ HOYOS. PT AMBULATING HARGROVE MULTIPLE TIMES. WATER PROVIDED. PT DENIES ANY OTHER NEEDS. PT CONTINUES TO AMBULATE HARGROVE.
[2023-11-01] MEDS ORDERED: PANTOPRAZOLE SODIUM 40 MG TABEC PO SCH (09:00)
--- NOTE | 2023-11-01 09:17 | NUR ---
IN TO ADMINISTER MEDICATION, SEE MAR. PT SITTING UP IN BED AND RESPONDS WHEN ADDRESSED. PT REPORTING BEING DONE WITH TRAY, TRAY REMOVED. PT REPORTING PAIN 5/10 TO ABD. PRN TYLENOL ADMINISTERED, SEE MAR. ASSESSMENT COMPLETE. LUNG SOUNDS CLEAR. BOWEL TONES ACTIVE. ABD DISTENTION NOTED. TENDERNESS TO RIGHT SIDE OF ABD WITH PALPATION. PT REPORTS PASSING FLATUS, PT STATES "A LITTLE, NOT A LOT." 3 MIDLINE LAP SITES COVERED WITH GAUZE AND TAPE. MIDLINE UPPER DRESSING C/D/I. MIDLINE MIDDLE DRESSING C/D/I. MIDLINE LOWER ABD DRESSING D/I WITH SCANT AMOUNT OF SHADOWING NOTED. DRESSING TO RIGHT SIDE OF ABD AROUND LOIS SITE D/I WITH SMALL AMOUNT OF SHADOWING NOTED. LOIS NOTED TO HAVE SEROUSANGUENOUS DRAINAGE. PT DENIES ANY NUMBNESS OR TINGLING AT THIS TIME. WATER PROVIDED. IV FLUSHES WNL AND IS INFUSING WNL. PT DENIES ANY OTHER NEEDS AT THIS TIME. CALL LIGHT IN REACH. LOLA SCHAFFER IN ROOM.
[2023-11-01 09:30] VITALS: BP 134/80
--- NOTE | 2023-11-01 11:23 | NUR ---
med rec complete.
[2023-11-01 11:25] VITALS: BP 134/80
--- NOTE | 2023-11-01 11:35 | NUR ---
IN TO ROUND ON PT. PT SITTING UP IN BED AND RESPONDS WHEN ADDRESSED. PT REPORTING TOILETING NEEDS. SBA FROM BED TO RESTROOM. PT GIVEN PRIVACY. PT INFORMED TO CALL WHEN FINISHED. PT AGREEABLE. PT DENIES ANY OTHER NEEDS AT THIS TIME. CALL LIGHT IN REACH.
--- NOTE | 2023-11-01 12:08 | NUR ---
IN WITH DR. GOLDMAN. DR. GOLDMAN REMOVES LOIS DRAIN. DR. GOLDMAN AND PT DISCUSS DC. PT AGREEABLE. REGULAR TRAY OF FOOD PROVIDED. PT DENIES ANY OTHER NEEDS FROM THIS RN AT THIS TIME. CALL LIGHT IN REACH.
[2023-11-01] MEDS ORDERED: DILAUDID4 MG PO (12:52)
[2023-11-01 12:53] VITALS: BP 133/76
--- NOTE | 2023-11-01 13:05 | NUR ---
IN TO GO OVER DC INSTRUCTIONS. VERBAL AND WRITTEN INSTRUCTIONS PROVIDED. PT VERBALIZES UNDERSTANDING. QUESTIONS ANSWERED. IV REMOVED WNL, SEE VASCULAR ACCESS. PT REQUESTING ASSISTANCE WITH DRESSING. LOLA SCHAFFER ASKED TO ASSIST PT. PT TO CALL RIDE.
--- NOTE | 2023-11-04 07:03 | DS ---
[facility] [place] [facility] [address], [place] [address] Signed ADMISSION DATE: 10/30/2023 DISCHARGE DATE: 11/01/2023 FINAL DIAGNOSIS: Gallstone pancreatitis. PROCEDURES: 1. Laparoscopic cholecystectomy with intraoperative cholangiogram (prolonged and difficult). 2. CT scan of abdomen and pelvis. 3. Ultrasound of abdomen. HISTORY OF PRESENT ILLNESS: Edmond is a 38-year-old gentleman with a body mass index of 42. He had two days of mid abdominal pain. He came to the emergency room for evaluation. White count was normal, but his liver function tests were elevated. His lipase was significantly elevated. CT scan showed his common bile duct at 10 mm, but unremarkable liver. He had inflammation of his pancreas and some fluid in the left gutter. The gallbladder seemed to be contracted but otherwise was unremarkable. I was asked to admit him as a surgeon on-call. We found that his laboratory work was improved next day. We ordered an ultrasound which confirmed his contracted somewhat thickened gallbladder with multiple stones. Again the common bile duct about 10-12 mm. We took him to surgery later that day for a prolonged and difficult laparoscopic cholecystectomy with intraoperative cholangiogram. Intraoperative cholangiogram showed his long cystic duct and unremarkable common bile duct as contrast flowed nicely into the duodenum. We saw no filling defects in his common bile duct, cystic duct or up into the liver. We did place a subhepatic drain. This morning, he is doing much better. His labs continue to improve. His lipase is still greater than 375. He has thin serosanguinous fluid in the drain. Therefore, the drain was removed. He is eating and doing much better. His pain is controlled. He said he is anxious to return to work. I told him most patients will take a week off work. He said he is going to check with his boss. DISCHARGE PLANS AND MEDICATIONS: Edmond is going to be discharged home with Dilaudid 4 mg tablets, we will dispense 15 tablets with no refills. Otherwise, he can use Tylenol, ibuprofen or Aleve. He takes no chronic medications. He can follow a regular diet. He can perform his activities of daily living including walking up and down stairs and showering and bathing as usual. He is not to do any heavy pushing, pulling, or lifting over about 20 pounds. He has 2 x 2 gauze and some tape over that drain site. He is to change it twice a day for three days, then discontinue. He will take that gauze off and shower as usual. He will follow up my Electronically Signed By: SUHAS HAWLEY MD 11/04/23 0703 PATIENT NAME: EDMOND LUCIO DISCHARGE SUMMARY DATE OF : 85 REPORT #: [id number] PHYSICIAN: SUHAS HAWLEY MD PCP: ELDER KELLY PA-C REPORT IS CONFIDENTIAL AND NOT TO BE RELEASED WITHOUT AUTHORIZATION [address] [address] Signed office in about 7 to 14 days for his general followup. He has expressed understanding and agrees with the above plan. Suhas Hawley MD ALB/EDGARDL /[id number] cc: Suhas Hawley MD Copies: SUHAS HAWLEY MD ~ Electronically Signed By: SUHAS HAWLEY MD 11/04/23 0703 PATIENT NAME: EDMOND LUCIO DISCHARGE SUMMARY DATE OF : 85 REPORT #: [id number] PHYSICIAN: SUHAS HAWLEY MD PCP: ELDER KELLY PA-C REPORT IS CONFIDENTIAL AND NOT TO BE RELEASED WITHOUT AUTHORIZATION
== END 2023-11-01 13:39 | disposition home or self-care (01) | DRG 418 ==
LOC: ED 21:50 → MS 23:24
PROVIDERS: Internal Medicine; ADMIT Colon & Rectal Surgery; ATTEND Colon & Rectal Surgery
PROC: BF121ZZ Fluoroscopy of Gallbladder using Low Osmolar Contrast (ICD-10-PCS; 2023-10-31)
PROC: 0FT44ZZ Resection of Gallbladder, Percutaneous Endoscopic Approach (ICD-10-PCS; principal; 2023-10-31 10:15)
DX: K85.10 Biliary acute pancreatitis without necrosis or infection (principal); Z68.41 Body mass index [BMI] 40.0-44.9, adult; J45.909 Unspecified asthma, uncomplicated; F32.A Depression, unspecified; Z88.5 Allergy status to narcotic agent; E66.9 Obesity, unspecified
CPT/HCPCS: 00790; 36415; 74177; 74300; 76705; 80053; 80307; 81003; 83690; 83735; 84100; 85025; 85730; 94760; 94762; 96375; 99285-25; A9270; C9113; J0696; J0780; J1100; J1170; J1650; J1885; J2405; J2704; J3010; J3475; J3490; J7121; Q9967